=== PATIENT | male | born 1980 | race African-American/Black ===

== ENCOUNTER 2025-05-12 11:52 | Inpatient (IN) | payer MEDICAID, SELFPAY ==
[2025-05-12] VITALS (8 sets, daily range): BP systolic 110–152; BP diastolic 76–136; PULSE 64–125; RESP 17–138; TEMP 36.6–36.7; O2SAT 20–99; BMI 23.1
--- NOTE | 2025-05-12 13:06 | ED.RN ---
Pt. appears extremely intoxicated, refusing to get out of wheelchair. pt. assisted into bed by friend in room and he was very unstable. Pt. states he wants to detox but then does not want to answer any questions.
--- NOTE | 2025-05-12 13:54 | EKG12_ITS ---
Test Reason : Blood Pressure : */* mmHG Vent. Rate : 124 BPM Atrial Rate : 124 BPM P-R Int : 144 ms QRS Dur : 92 ms QT Int : 328 ms P-R-T Axes : 73 84 -44 degrees QTcB Int : 471 ms Sinus tachycardia T wave abnormality, consider inferior ischemia Abnormal ECG Confirmed by TRISTEN FINE, ELYSSA ([id number]), food expeditor JC SOTO ([id number]) on 05/17/2025 8:24:56 AM Referred By: Confirmed By: ELYSSA RAMON MD
[2025-05-12 14:19] LABS: Hematocrit 45.3 % (40-54); Hemoglobin 15.7 g/dL (13.0-16.5); Immature Granulocytes Count 0.020 X10^3/uL (0.0-0.0); Mean Corp Hgb Conc 34.7 g/dL (32-36); Mean Corpuscular Volume 89.0 fL (80-94); Mean Platelet Vol. 9.6 fl (6.2-12.0); NRBC Flagged by Analyzer 0 % (0-5); Platelet Count 204 K/mm3 (150-450); RBC Distribution Width CV 13.3 % (11.6-14.6); RBC Distribution Width SD 43.7 fl (35.1-43.9); Red Blood Count 5.09 M/mm3 (4.6-6.2); White Blood Count 5.7 K/mm3 (4.4-11.0)
--- NOTE | 2025-05-12 14:21 | EX.ED.SAOD ---
HPI History of Present Illness Chief Complaint: Substance Abuse Informant: patient and spouse/S.O. Narrative Narrative: Patient is a 44-year-old male with history of chronic alcohol abuse presenting for evaluation for alcohol detox. Last drink was just prior to arrival. States has been drinking 12-14 liquor drinks per day. Used to drink heavily for months. Was previously in an inpatient service. Denies any history of seizure associated alcohol withdrawal. Denies any other ingestions or substance use. Denies any physical complaints. does note that he frequently vomits was not vomited today. No other complaints or concerns at this time. PFSH PFS Home Medications Medication Instructions Recorded Last Taken Type NK 05/12/25 Unknown History Allergy/AdvReac Type Severity Reaction Status Date / Time No Known Allergies Allergy Verified 05/12/25 11:54 Social History Smoking Status: Current every day smoker tobacco type: e-cigarettes ROS ROS ED Constitutional Constitutional ED: Denies chills or fever(s) Cardiovascular Cardiovascular: Denies chest pain Respiratory/Chest Respiratory/Chest: Denies dyspnea Gastrointestinal Gastrointestinal: Denies abdominal pain Musculoskeletal Musculoskeletal: Denies arthralgias or myalgias Psychiatric Psychiatric: Reports anxiety; Denies depression Hematologic/Lymphatic Hematologic/Lymphatic: Denies easy bleeding or easy bruising EXAM Physical Exam Const Vital Signs: 05/12/25 11:52 05/12/25 13:52 05/12/25 14:00 Temperature 97.8 F Temperature Source Oral Pulse Rate 80 80 Respiratory Rate 138 H 18 18 Blood Pressure 112/101 H 110/94 H 110/98 H Blood Pressure Mean 104 99 102 Pulse Ox 20 99 99 Oxygen Delivery Method Room Air 05/12/25 14:37 Temperature 97.8 F Temperature Source Pulse Rate 64 Respiratory Rate 18 Blood Pressure 124/76 H Blood Pressure Mean 92 Pulse Ox 99 Oxygen Delivery Method Positive well nourished and well developed General Appearance ED: well developed and NAD HEENT Reports moist mucous membranes atraumatic Neck supple Chest Wall inspection of chest normal Resp normal respiratory effort and clear to auscultation bilaterally Cardio regular rate and regular rhythm Neuro oriented x3 Neuro Narrative: Normal speech however does have outburst in the emergency room. Clinically intoxicated. Sensorium / Orientation: alert Psych thought process normal Attitude: agitated MDM MDM MDM Narrative Medical decision making narrative: Patient evaluated for request of inpatient alcohol detox. Is mildly tachycardic upon arrival but clinically is intoxicated mildly agitated. Patient is agreeable with inpatient detox. Addiction medicine orders placed. Case discussed with hospitalist for admission, Dr. Miller. Lab Data Attestation: I reviewed the patient's lab results. Labs: Laboratory Results - last 24 hr 05/12/25 14:10 WBC 5.7 RBC 5.09 Hgb 15.7 Hct 45.3 MCV 89.0 MCH 30.8 MCHC 34.7 RDW Std Deviation 43.7 RDW Coeff of Max 13.3 Plt Count 204 MPV 9.6 Immature Gran % (Auto) 0.300 Neut % (Auto) 46.9 L Lymph % (Auto) 39.3 [place] % (Auto) 11.3 H Eos % (Auto) 0.3 Baso % (Auto) 1.9 H Absolute Neuts (auto) 2.7 Absolute Lymphs (auto) 2.25 Nucleated RBC % 0 Sodium 140 Potassium 4.0 Chloride 98 Carbon Dioxide 22.4 Anion Gap 19 H BUN 20 H Creatinine 0.98 Estim Creat Clear Calc 87.71 Est GFR (MDRD) Non-Af 99 BUN/Creatinine Ratio 20.6 H Glucose 187 H Calcium 9.2 Total Bilirubin 0.48 AST 163 H ALT 95 H Alkaline Phosphatase 137 H Total Protein 8.0 Albumin 4.4 Globulin 3.6 Albumin/Globulin Ratio 1.2 Ethyl Alcohol 471.0 H* Rhythm Strip Rhythm Strip: Sinus Tach Rate: 124 Ectopy: None EKG Initial EKG: Attestation: I personally reviewed and interpreted this EKG as follows: Interpretation: Sinus Tachycardia Comments: Sinus tachycardia rate 124 bpm Normal axis Normal intervals Nonspecific T wave changes No prior EKG for comparison Discharge Plan Dx/Rx/DC Orders Clinical Impression: Alcohol intoxication Disposition Disposition: Acute Care Hospital [facility] Discharge Date/Time: 05/12/25 15:21
--- NOTE | 2025-05-12 14:29 | ED.RN ---
PIV removed per verbal order from Dr. Thompson
--- NOTE | 2025-05-12 14:30 | CM.ED ---
Social Work Patient requesting admission to [facility] for alcohol detox. Treatment navigator notified of admission. Scarlett Jenkins, AMERICAN STUDIES PROFESSOR, LEGAL ARCHIVIST
--- NOTE | 2025-05-12 14:30 | ED.RN ---
Dr Thompson states no urine collection necessary
--- NOTE | 2025-05-12 14:30 | ED.RN ---
KANDY contracted signed by patient after this RN read rules to patient despite him responding with "why the fuck would I sign this?" several times
[2025-05-12 15:07] LABS: AST(SGOT) 163 U/L (<=37); Alanine Aminotransfer ALT/SGPT 95 U/L (<=46); Albumin, Serum 4.4 g/dL (3.5-5.0); Alkaline Phosphatase 137 U/L (40-129); Anion Gap 19 (5-15); BUN 20 mg/dL (4-19); BUN/Creat Ratio 20.6 RATIO (10-20); Calcium,Total 9.2 mg/dL (7.6-11.0); Carbon Dioxide 22.4 mmol/L (21.0-32.0); Chloride 98 mmol/L (98-108); Estimated Creatinine Clearance 87.71 ml/min (50-250); Globulin 3.6 g/dL (2.2-4.2); Glucose 187 mg/dL (70-99); Potassium 4.0 mmol/L (3.3-5.1)
[2025-05-12 15:09] LABS: Alcohol, Blood (Medical)-Serum 471.0 mg/dL (<=10.0)
--- NOTE | 2025-05-12 15:43 | NURSING ---
pt states he drinks "a pint of bicardi a day." reports "i was in [facility] a month ago." "my girlfriend just broke up with me and that made me drink."
--- NOTE | 2025-05-12 16:08 | PCM.HP.STD ---
HPI - General General Date of Admission: 05/12/25 Date of Service: 05/12/25 Chief Complaint: Requesting services for alcohol use disorder HPI Narrative JEREMY BOWMAN, is a 44 M who presents to the emergency room at [facility] requesting services for alcohol use disorder. Patient has been drinking today, he drinks alcohol, he denies any other drug usage. Patient had gone through detox sometime last year and according to an acquaintance in the room today, he resumed drinking approximately 2 to 3 months ago. Labs obtained in the emergency room showed a normal white blood cell count, hemoglobin was normal, chemistry panel was remarkable for a glucose of 187, BUN of 20, and the patient had elevation of AST at 163, ALT at 95, and alkaline phosphatase of 137. Patient's blood alcohol level was 471. Patient will be admitted to [place] [id number] for alcohol detox services, he will be seen by addiction social media job titles. [facility] Home Medications Medication Instructions Recorded Last Taken Type NK 05/12/25 Unknown History Allergy/AdvReac Type Severity Reaction Status Date / Time No Known Allergies Allergy Verified 05/12/25 11:54 Social History Smoking Status: Current every day smoker tobacco type: e-cigarettes ROS Constitutional Constitutional: Denies anorexia, change in weight, fever(s), night sweats or weakness Eyes Eyes: Denies blurry vision, change in vision, discharge from eye(s) or eye pain Cardiovascular Cardiovascular: Denies chest pain, claudication, dyspnea on exertion, edema or palpitations Respiratory/Chest Respiratory/Chest: Denies cough, hemoptysis, shortness of breath at rest or shortness of breath with exertion Gastrointestinal Gastrointestinal: Denies abdominal pain, constipation, diarrhea, hematemesis, hematochezia, melena, nausea or vomiting Genitourinary Genitourinary: Denies dysuria, hematuria, urinary frequency, urinary hesitancy, urinary incontinence or urinary urgency Musculoskeletal Musculoskeletal: Denies back pain, joint pain, joint stiffness, joint swelling, myalgias or neck pain Neurologic Neurologic: Denies abnormal gait, abnormal speech, dizziness, focal weakness, headache(s), loss of vision, numbness, other visual disturbances, paresthesias, syncope or tingling Psychiatric Psychiatric: Denies anxiety, cognitive impairment, depression, irritability, mood swings or suicidal ideation Endocrine Endocrinology: Denies change in body appearance, cold intolerance, excessive sweating, heat intolerance, polydipsia or polyuria Hematologic/Lymphatic Hematologic/Lymphatic: Denies none, anemia, easy bleeding, easy bruising or lymphadenopathy Allergic/Immunologic Allergic/Immunologic: Denies rhinitis, urticaria, eczemia or asthma Vital Signs Vital Signs Vital Signs: 05/12/25 11:52 05/12/25 13:52 05/12/25 14:00 Temperature 97.8 F Temperature Source Oral Pulse Rate 80 80 Respiratory Rate 138 H 18 18 Respiratory Effort Blood Pressure 112/101 H 110/94 H 110/98 H Blood Pressure Mean 104 99 102 Blood Pressure Source Blood Pressure Position Blood Pressure Location Pulse Ox 20 99 99 Oxygen Delivery Method Room Air 05/12/25 14:37 05/12/25 15:00 05/12/25 15:37 Temperature 97.8 F 98.1 F Temperature Source Oral Pulse Rate 64 64 117 H Respiratory Rate 18 18 18 Respiratory Effort Blood Pressure 124/76 H 134/76 H 152/136 H Blood Pressure Mean 92 95 141 Blood Pressure Source Monitor Blood Pressure Position Semi-Fowlers Blood Pressure Location Left Arm Pulse Ox 99 98 98 Oxygen Delivery Method Room Air Room Air 05/12/25 15:44 Temperature Temperature Source Pulse Rate Respiratory Rate Respiratory Effort Normal Blood Pressure Blood Pressure Mean Blood Pressure Source Blood Pressure Position Blood Pressure Location Pulse Ox Oxygen Delivery Method Weight Weight: 65 kg Body Mass Index (BMI) 23.1 Physical Exam Const no apparent distress Constitutional Narrative: Patient appears intoxicated and lethargic, he appears his stated age General Appearance: cooperative, well kempt and well developed Orientation / Consciousness: awake, oriented to person and oriented to place HEENT normocephalic, head/scalp atraumatic and moist oral mucous membranes Eyes PERRL, EOMs intact bilaterally and conjunctivae normal Neck supple, no JVD, thyroid normal and no carotid bruits General: trachea midline Resp normal respiratory effort, no retractions, no use of accessory muscles and clear to auscultation bilaterally Auscultation: Negative for rales, rhonchi or wheezes Cardio regular rate, regular rhythm, S1 normal heart sound, S2 normal heart sound, no murmurs, no rub and no gallops GI normal to inspection, nondistended, normoactive bowel sounds, soft to palpation, non-tender and non-distended Extremity no clubbing, cyanosis or edema Skin no rashes or lesions noted General Skin Exam: no breakdown Neuro CN's II-XII intact bilaterally, moves all extremities, no focal motor deficits and no sensory deficits noted Neuro Narrative: Patient appears intoxicated with slurred speech Sensorium / Orientation: awake, alert, oriented to person and oriented to place Psych Psych Narrative: Patient has slurred speech and appears intoxicated Results Lab / Micro Data 05/12/25 14:10 05/12/25 14:10 Labs: Laboratory Results - last 24 hr 05/12/25 14:10: WBC 5.7, RBC 5.09, Hgb 15.7, Hct 45.3, MCV 89.0, MCH 30.8, MCHC 34.7, RDW Std Deviation 43.7, RDW Coeff of Max 13.3, Plt Count 204, MPV 9.6, Immature Gran % (Auto) 0.300, Neut % (Auto) 46.9 L, Lymph % (Auto) 39.3, [place] % (Auto) 11.3 H, Eos % (Auto) 0.3, Baso % (Auto) 1.9 H, Absolute Neuts (auto) 2.7, Absolute Lymphs (auto) 2.25, Nucleated RBC % 0, Sodium 140, Potassium 4.0, Chloride 98, Carbon Dioxide 22.4, Anion Gap 19 H, BUN 20 H, Creatinine 0.98, Estim Creat Clear Calc 87.71, Est GFR (MDRD) Non-Af 99, BUN/Creatinine Ratio 20.6 H, Glucose 187 H, Calcium 9.2, Total Bilirubin 0.48, AST 163 H, ALT 95 H, Alkaline Phosphatase 137 H, Total Protein 8.0, Albumin 4.4, Globulin 3.6, Albumin/Globulin Ratio 1.2, Ethyl Alcohol 471.0 H* Rhythm Strip Rhythm Strip: Sinus Tach Rate: 124 Ectopy: None Assessment & Plan Assessment/Plan (1) Alcohol intoxication: PLAN: Plan 1. Alcohol use disorder-patient will be admitted to [facility] 3, he will be placed on a phenobarbital taper, patient will be monitored for alcohol withdrawal symptom #2 alcohol intoxication-again patient will be monitored for alcohol withdrawal symptoms and treated accordingly Total clinical time spent by myself addressing patient's medical issues, reviewing all of his data, and collaborating with patient's care team: 55 minutes Charges/Coding Visit Charges Inpatient E&M: 18569 Init Hosp L2 D/C Safety Score for UGIB Assessment [place] Bleeding Score (GBS): Stratifies upper GI bleeding patients who are "low-risk" and candidates for outpatient management. Hemoglobin, BUN, Recent Vital Signs: Hgb 15.7 g/dL (13.0-16.5) 05/12/25 14:10 BUN 20 mg/dL (4-19) H 05/12/25 14:10 Pulse Rate 117 Blood Pressure 152/136 Score Interpretation: Score of 0: A GBS of 0 is a “Low Risk” GI bleed, and is highly sensitive (99.6% in a 2006 retrospective study) for predicting which patients did not require any “medical intervention”: blood transfusion, endoscopy, or surgery. This was confirmed in a 2009 [facility] study where patients with a score of 0 were actually discharged and had no GI bleeding mortality at 6 month followup Score above 0: A GBS greater than zero suggests a “High Risk” GI bleed that is likely to require “medical intervention”: transfusion, endoscopy, or surgery. A higher GBS also correlated with a higher likelihood of needing intervention Scores >/= 6 are associated with >50% risk of needing intervention D/C Safety Score for LGIB Assessment Assessment Tool: Readmission and adverse event risk in patients with acute lower GI bleeding. Hemoglobin and Recent Vital Signs: Hgb 15.7 g/dL (13.0-16.5) 05/12/25 14:10 Pulse Rate 117 05/12/25 15:37 Blood Pressure 152/136 05/12/25 15:37 Score Interpretation: Probability Percentage of safe discharge (absence of rebleeding, blood transfusion, therapeutic intervention, 28 day readmission, or ) Score of 8 or below: Consider discharge, with appropriate precautions. Score of 9 or above: Discharge NOT recommended. Consider admission with further workup and resuscitation as necessary.
[2025-05-13 00:41] VITALS: BP 110/79; PULSE 106; RESP 18; TEMP 36.6; O2SAT 98
[2025-05-13 04:59] VITALS: BP 150/105; PULSE 111; RESP 18; TEMP 36.6; O2SAT 99
[2025-05-13 08:14] VITALS: BP 151/100; PULSE 81; RESP 16; TEMP 36.6; O2SAT 95
[2025-05-13] MEDS: Thiamine Hydrochloride 100 MG Tablet PO (08:24)
--- NOTE | 2025-05-13 10:52 | ADDICTION ---
Met with the patient to complete RAMP assessments. The patient was open and forthcoming in discussing their alcohol and substance use history and recovery goals. They expressed interest in pursuing outpatient treatment and are receptive to outpatient programs. He declined Vivitrol. The patient demonstrated insight into their recovery process, acknowledging the importance of learning about addiction, understanding associated behaviors, and developing new coping strategies to support long-term success. He stated a willingness to consider inpatient treatment if relapse continues following discharge. At this time, the patient did not identify any transportation needs post-discharge.
[2025-05-13 11:20] LABS: Mucous, Urine 0 SEEN /hpf (<or=2+); Red Blood Cells-Urine 0 SEEN /hpf (0-5); Squamous Epithelial Cells - UA 0 SEEN /hpf (0-5)
[2025-05-13 11:36] LABS: Color, Urine Yellow (Yellow); Glucose, Dipstick 250 mg/dl (Normal); Ketone-Dipstick 15 mg/dl (Negative); Leukocyte Esterase-Dipstick 25 /ul (Negative); Nitrite-Dipstick Negative (Negative); Occult Blood-Urine Negative /ul (Negative); Protein-Dipstick 30 mg/dl (Negative); Specific Gravity, Urine 1.020 (1.002-1.030); Urine Bilirubin Dipstick Negative (Negative)
[2025-05-13 11:57] LABS: Barbiturate Urine PRESUMPTIVE POSITIVE (< 200 ng/mL); Benzodiazepine Urine NEGATIVE (< 200 ng/mL); PCP Urine NEGATIVE (< 25 ng/mL); THC Urine NEGATIVE (< 50 ng/mL)
[2025-05-13 12:21] VITALS: BP 145/104; PULSE 81; RESP 16; TEMP 36.7; O2SAT 99
--- NOTE | 2025-05-13 15:28 | CHAPLAIN ---
Type of Pastoral Visit _x__ Initial Visit ___ Follow-up Visit ___ On-call Visit ___ General Patient Visit ___ Spiritual Assessment ___ Family Conference ___ Bereavement ___ Rapid Response ___ Code Blue ___ Other (describe below) Pastoral Care Referral From _x__ Patient ___ Family ___ Nurse ___ Physician ___ Nurse Staff Industrial ___ Librarian ___ Other (describe below) Sacrament/Intervention _x__ Active listening ___ Anointing ___ Sikhism ___ Bereavement ___ Communion _x__ Liya exploration ___ _x__ Life review _x__ Prayer ___ Reconciliation ___ Sacrament of Sick _x__ Supportive presence ___ Wedding ___ Other (describe below) Pastoral Comments patient is awake and alert, stating that he is bored in the room and thus glad for someone to talk with; pt is open about his life and struggles of more recent years with drinking, relationships, and liya; pt identifies areas of need and knows there are changes that should happen; pt is willing to do IOP and is interested in spiritual support; pt welcomes the presence and prayers of the equipment records supervisor
[2025-05-13 15:30] VITALS: BP 136/96; PULSE 80; RESP 17; TEMP 36.8; O2SAT 98
--- NOTE | 2025-05-13 16:11 | PCM.PN.HOSP ---
Reason for Visit Chief Complaint: Requesting services for alcohol use disorder Objective Data Objective Data Vital Signs: Vital Signs Temp Pulse Resp BP Pulse Ox O2 Del Method 98.2 F 80 17 136/96 H 98 Room Air 05/13/25 15:30 05/13/25 15:30 05/13/25 15:30 05/13/25 15:30 05/13/25 15:30 05/13/25 15:30 Oxygen Delivery Method Room Air Weight: 143 lb 11.862 oz Body Mass Index (BMI) 23.1 Intake & Output: Intake and Output for Last 24 Hours 05/11/25 05/12/25 05/13/25 23:59 23:59 23:59 Intake Total 400 / 400 Balance 400 / 400 Lab / Micro Data 05/12/25 14:10 05/12/25 14:10 Labs: Laboratory Results - last 24 hr 05/12/25 10:50: Urine Color Yellow, Urine Clarity Clear, Urine pH 6.0, Ur Specific [place] 1.020, Urine Protein 30 H, Urine Glucose (UA) 250 H, Urine Ketones 15 H, Urine Occult Blood Negative, Urine Nitrite Negative, Urine Bilirubin Negative, Urine Urobilinogen 1 H, Ur Leukocyte Esterase 25 H, Urine RBC 0 SEEN, Urine WBC 0-5 SEEN, Ur Squamous Epith Cells 0 SEEN, Urine Bacteria 0 SEEN, Urine Mucus 0 SEEN, Urine Opiates Screen NEGATIVE, U Buprenorphine Qual NEGATIVE, Ur Oxycodone Screen NEGATIVE, Urine Methadone Screen NEGATIVE, Urine Fentanyl Screen NEGATIVE, Ur Barbiturates Screen PRESUMPTIVE POSITIVE, Ur Phencyclidine Scrn NEGATIVE, Ur Amphetamines Screen NEGATIVE, U Benzodiazepines Scrn NEGATIVE, Urine Cocaine Screen NEGATIVE, U Cannabinoids Screen NEGATIVE Rhythm Strip Rhythm Strip: Sinus Tach Rate: 124 Ectopy: None Physical Exam Narrative Seen and examined. Patient admitted with acute alcohol withdrawal syndrome. Denies chronic liver disease. Has been drinking alcohol since high school intermittently but not more frequent and regular in 20s. Denies other substance use Physical exam General: Alert, Oriented x3, Cooperative HEENT: Atraumatic, PERRLA, EOMI, Normocephalic. Oral: No Gingival or Mucosal Lesions/ Ulcerations Neck: Supple, No JVD, Negative Carotid Bruits Chest wall/Lungs: Air entry equal in bilateral lung bases. No crepitation/rhonchi Cardiovascular: Regular rate and rhythm, Normal S1,S2, No M/G/R Abdomen: Bowel Sounds Present, Soft, Non Tender, Non-Distended : No dysuria. No renal angle tenderness. No suprapubic tenderness. Extremities: No edema, Capillary Refill Less than 3 Seconds Skin: No rashes, No breakdown Musculoskeletal: No Tenderness to Palpation of Joints or Extremities Neurological: Cranial nerves II-XII grossly intact, DTR 2+/4. No acute focal neurological deficit. Psych/Mental Status: Mild tremor Assessment & Plan Assessment/Plan (1) Alcohol intoxication: PLAN: Plan This is a 44-year-old gentleman admitted for acute alcohol withdrawal syndrome. 1. Acute alcohol withdrawal syndrome with history of chronic alcohol use disease disorder, dependence, tolerance and relapse: Patient started drinking alcohol as a teenager. He says he drinks half pint of Bacardi every day since COVID time. Had 3 months of sober last year. Patient is being admitted to [facility] floor. Patient on phenobarbital based order set along with other adjunctive medications gabapentin, Bentyl, Vistaril, clonidine, Klonopin as needed for alcohol withdrawal symptom control. Patient is on thiamine and folate acid. CIWA monitor. sales engagement manager [phone] consulted. 2. Alcoholic hepatitis unclear whether chronic or acute on chronic: ALT and AST elevated. ALP 137 mildly elevated. Total bilirubin normal. Monitor liver function 3. DVT prophylaxis, low risk. No prophylaxis indicated Laboratory Results 05/12/25 10:50: Urine Color Yellow, Urine Clarity Clear, Urine pH 6.0, Ur Specific [place] 1.020, Urine Protein 30 H, Urine Glucose (UA) 250 H, Urine Ketones 15 H, Urine Occult Blood Negative, Urine Nitrite Negative, Urine Bilirubin Negative, Urine Urobilinogen 1 H, Ur Leukocyte Esterase 25 H, Urine RBC 0 SEEN, Urine WBC 0-5 SEEN, Ur Squamous Epith Cells 0 SEEN, Urine Bacteria 0 SEEN, Urine Mucus 0 SEEN, Urine Opiates Screen NEGATIVE, U Buprenorphine Qual NEGATIVE, Ur Oxycodone Screen NEGATIVE, Urine Methadone Screen NEGATIVE, Urine Fentanyl Screen NEGATIVE, Ur Barbiturates Screen PRESUMPTIVE POSITIVE, Ur Phencyclidine Scrn NEGATIVE, Ur Amphetamines Screen NEGATIVE, U Benzodiazepines Scrn NEGATIVE, Urine Cocaine Screen NEGATIVE, U Cannabinoids Screen NEGATIVE Charges/Coding Visit Charges Inpatient E&M: 59307 Subs Hosp L2
[2025-05-13 20:02] VITALS: BP 141/107; PULSE 93; RESP 18; TEMP 36.4; O2SAT 100
[2025-05-14 04:42] VITALS: BP 120/102; PULSE 100; RESP 18; TEMP 36.6; O2SAT 100
[2025-05-14] MEDS: Thiamine Hydrochloride 100 MG Tablet PO (08:11)
[2025-05-14 08:26] VITALS: BP 135/94; PULSE 54; RESP 16; TEMP 36.4; O2SAT 100
[2025-05-14 09:05] LABS: AST(SGOT) 425 U/L (<=37); Alanine Aminotransfer ALT/SGPT 181 U/L (<=46); Albumin, Serum 4.0 g/dL (3.5-5.0); Alkaline Phosphatase 145 U/L (40-129); Anion Gap 8 (5-15); BUN 9 mg/dL (4-19); BUN/Creat Ratio 11.0 RATIO (10-20); Calcium,Total 9.8 mg/dL (7.6-11.0); Carbon Dioxide 31.7 mmol/L (21.0-32.0); Chloride 94 mmol/L (98-108); Estimated Creatinine Clearance 99.95 ml/min (50-250); Globulin 3.1 g/dL (2.2-4.2); Glucose 161 mg/dL (70-99); Potassium 4.7 mmol/L (3.3-5.1)
--- NOTE | 2025-05-14 10:33 | DCINST_ITS ---
Discharge Instructions DC O2, CPAP, BIPAP needs Home O2 Discharge instructions: No Dressing / Incision Discharge Activity: Return to Normal Activity Weight Bearing Status: Weight bearing as tolerated Dressing / Incision Call your doctor if you observe: Fever of 101 or Higher, Coldness, Increased Pain, Numbness or Tingling, Change in Color, Inability to urinate, Inability to have a bowel movement, Shortness of breath, Dizziness, Fainting spells, Swelling in the ankles, Chest pain, Prolonged hiccupping, Increased palpitations (irregular heartbeat) and Calf discomfort Follow Up Care When: IN 2 WEEKS Test Results: Test results from this visit will be discussed in further detail at your follow- up appointment, if applicable. Discharge Plan Admission Admit Date/Time: 05/12/25 14:41 Attending Provider: Fernando Kerr Primary Care Provider: Malik Ballesteros Consulting Providers: Anuj Miller Instructions Additional Instructions / Restrictions: Patient said he will follow-up with [facility] for outpatient alcohol rehab Discharge Orders/Prescriptions Prescriptions: New thiamine HCl (vitamin B1) 100 mg Tablet 100 mg PO DAILYCM 30 Days Qty: 30 2RF folic acid 1 mg Tablet 1 mg PO DAILY@0800 30 Days Qty: 30 2RF Referrals / Follow Up: Malik Ballesteros, [Primary Care Provider, Internal Medicine] - Within 2 Weeks Disposition Disposition (needs filled in before D/C Order can be placed): Home, Self Care
--- NOTE | 2025-05-14 10:38 | PCM.DC.SUM ---
Providers Date of Admission: 05/12/25 Date of Discharge: 05/14/25 Primary Care Physician: Dr. Malik Ballesteros, DO Reason For Visit: ALCOHOL USE DISORDER Diagnosis Discharge Diagnosis (1) Alcohol intoxication: Status: Acute Code(s): F10.929 - Alcohol use, unspecified with intoxication, unspecified Plan This is a 44-year-old gentleman admitted for acute alcohol withdrawal syndrome. 1. Acute alcohol withdrawal syndrome with history of chronic alcohol use disease disorder, dependence, tolerance and relapse: Patient started drinking alcohol as a teenager. He says he drinks half pint of Bacardi every day since COVID time. Had 3 months of sober last year. [facility] Patient on phenobarbital based order set along with other adjunctive medications gabapentin, Bentyl, Vistaril, clonidine, Klonopin as needed for alcohol withdrawal symptom control. Patient is on thiamine and folate acid. [employer] monitor. information technology audit manager 180 consulted. 05/14: Labs reviewed. AST and ALT elevated. Plan phosphatase also elevated. Glucose 161. Advised follow-up with PCP in 2 weeks. He said that he would not drink alcohol anymore. He quit alcohol from now. Prescription for folic acid and thiamine given. 2. Alcoholic hepatitis unclear whether chronic or acute on chronic: ALT and AST elevated. ALP 137 mildly elevated. Total bilirubin normal. Monitor liver function 3. DVT prophylaxis, low risk. No prophylaxis indicated Discharge medication reconciliation done. Discharge follow-up instructions completed. Discharge process discussed with the patient and all questions were answered to patient's satisfaction. Follow with PCP in 1 to 2 weeks Total time spent, exact 35 minutes on discharge meds reconciliation, examination, coordination of care with nurses and ancillary staff, review of imaging and blood test and discussion with the patient on follow-up instructions. Laboratory Results 05/12/25 10:50: Urine Color Yellow, Urine Clarity Clear, Urine pH 6.0, Ur Specific Franklin 1.020, Urine Protein 30 H, Urine Glucose (UA) 250 H, Urine Ketones 15 H, Urine Occult Blood Negative, Urine Nitrite Negative, Urine Bilirubin Negative, Urine Urobilinogen 1 H, Ur Leukocyte Esterase 25 H, Urine RBC 0 SEEN, Urine WBC 0-5 SEEN, Ur Squamous Epith Cells 0 SEEN, Urine Bacteria 0 SEEN, Urine Mucus 0 SEEN, Urine Opiates Screen NEGATIVE, U Buprenorphine Qual NEGATIVE, Ur Oxycodone Screen NEGATIVE, Urine Methadone Screen NEGATIVE, Urine Fentanyl Screen NEGATIVE, Ur Barbiturates Screen PRESUMPTIVE POSITIVE, Ur Phencyclidine Scrn NEGATIVE, Ur Amphetamines Screen NEGATIVE, U Benzodiazepines Scrn NEGATIVE, Urine Cocaine Screen NEGATIVE, U Cannabinoids Screen NEGATIVE Medications at Discharge Home Medications folic acid 1 mg tablet 1 mg PO DAILY@0800 30 days #30 tabs 05/14/25 thiamine HCl (vitamin B1) 100 mg tablet 100 mg PO DAILYCM 30 days #30 tabs 05/14/25 Physical Exam Narrative Seen and examined. No acute issues. Patient said his alcohol symptoms are controlled. He wants to go home Patient admitted with acute alcohol withdrawal syndrome. Denies chronic liver disease. Has been drinking alcohol since high school intermittently but not more frequent and regular in 20s. Denies other substance use Physical exam General: Alert, Oriented x3, Cooperative HEENT: Atraumatic, PERRLA, EOMI, Normocephalic. Oral: No Gingival or Mucosal Lesions/ Ulcerations Neck: Supple, No JVD, Negative Carotid Bruits Chest wall/Lungs: Air entry equal in bilateral lung bases. No crepitation/rhonchi Cardiovascular: Regular rate and rhythm, Normal S1,S2, No M/G/R Abdomen: Bowel Sounds Present, Soft, Non Tender, Non-Distended. Liver not enlarged : No dysuria. No renal angle tenderness. No suprapubic tenderness. Extremities: No edema, Capillary Refill Less than 3 Seconds Skin: No rashes, No breakdown Musculoskeletal: No Tenderness to Palpation of Joints or Extremities Neurological: Cranial nerves II-XII grossly intact, DTR 2+/4. No acute focal neurological deficit. Psych/Mental Status:Tremors resolved. Weight / BMI Weight Weight: 143 lb 11.862 oz Body Mass Index (BMI) 23.1 ABG / Lab / Microbiology Data 05/12/25 14:10 05/14/25 07:55 Laboratory: Laboratory Results - last 24 hr 05/12/25 10:50: Urine Color Yellow, Urine Clarity Clear, Urine pH 6.0, Ur Specific Franklin 1.020, Urine Protein 30 H, Urine Glucose (UA) 250 H, Urine Ketones 15 H, Urine Occult Blood Negative, Urine Nitrite Negative, Urine Bilirubin Negative, Urine Urobilinogen 1 H, Ur Leukocyte Esterase 25 H, Urine RBC 0 SEEN, Urine WBC 0-5 SEEN, Ur Squamous Epith Cells 0 SEEN, Urine Bacteria 0 SEEN, Urine Mucus 0 SEEN, Urine Opiates Screen NEGATIVE, U Buprenorphine Qual NEGATIVE, Ur Oxycodone Screen NEGATIVE, Urine Methadone Screen NEGATIVE, Urine Fentanyl Screen NEGATIVE, Ur Barbiturates Screen PRESUMPTIVE POSITIVE, Ur Phencyclidine Scrn NEGATIVE, Ur Amphetamines Screen NEGATIVE, U Benzodiazepines Scrn NEGATIVE, Urine Cocaine Screen NEGATIVE, U Cannabinoids Screen NEGATIVE 05/14/25 07:55: Sodium 134, Potassium 4.7, Chloride 94 L, Carbon Dioxide 31.7, Anion Gap 8, BUN 9, Creatinine 0.86, Estim Creat Clear Calc 99.95, Est GFR (MDRD) Non-Af 110, BUN/Creatinine Ratio 11.0, Glucose 161 H, Calcium 9.8, Total Bilirubin 1.15, AST 425 H, ALT 181 H, Alkaline Phosphatase 145 H, Total Protein 7.1, Albumin 4.0, Globulin 3.1, Albumin/Globulin Ratio 1.3 D/C Instructions Weight Bearing Status: Weight bearing as tolerated Call your doctor if you observe: Fever of 101 or Higher, Coldness, Increased Pain, Numbness or Tingling, Change in Color, Inability to urinate, Inability to have a bowel movement, Shortness of breath, Dizziness, Fainting spells, Swelling in the ankles, Chest pain, Prolonged hiccupping, Increased palpitations (irregular heartbeat) and Calf discomfort DC O2, CPAP, BIPAP Needs Home O2 Discharge instructions: No When: IN 2 WEEKS Meaningful Use Info Meaningful Use Meaningful Use Diagnoses (Choose all that apply): None applicable Discharge Plan Admission Admit Date/Time: 05/12/25 14:41 Attending Provider: Fernando Kerr Primary Care Provider: Malik Ballesteros Consulting Providers: Anuj Miller Instructions Additional Instructions / Restrictions: Patient said he will follow-up with [facility] for outpatient alcohol rehab Discharge Orders/Prescriptions Prescriptions: New thiamine HCl (vitamin B1) 100 mg Tablet 100 mg PO DAILYCM 30 Days Qty: 30 2RF folic acid 1 mg Tablet 1 mg PO DAILY@0800 30 Days Qty: 30 2RF Referrals / Follow Up: Malik Ballesteros, DO [Primary Care Provider, Internal Medicine] - Within 2 Weeks Disposition Disposition (needs filled in before D/C Order can be placed): Home, Self Care
--- NOTE | 2025-05-14 10:59 | PHA.DC.MR.R ---
Pharmacy [place] Med Reconciliation Pharmacy Service has performed discharge medication reconciliation for this patient. The patient's discharge medication list was reviewed for discrepancies and discrepancies were resolved. Medications at Discharge Home Medications folic acid 1 mg tablet 1 mg PO DAILY@0800 30 days #30 tabs 05/14/25 thiamine HCl (vitamin B1) 100 mg tablet 100 mg PO DAILYCM 30 days #30 tabs 05/14/25
== END 2025-05-14 10:54 | disposition home or self-care (01) | DRG 775 ==
LOC: ED 14:49 → MS3 14:52
PROVIDERS: Admitting Provider Internal Medicine; Emergency Provider Emergency Medicine; PCP Family Medicine; Visit Provider Internal Medicine
DX: F10.239 Alcohol dependence with withdrawal, unspecified (principal); K70.10 Alcoholic hepatitis without ascites; F17.290 Nicotine dependence, other tobacco product, uncomplicated; F10.229 Alcohol dependence with intoxication, unspecified; Y90.8 Blood alcohol level of 240 mg/100 ml or more
CPT/HCPCS: 36415; 80053; 80307; 81001; 82077; 85025; 93005; 97802; 99284